=== PATIENT | female | born 1970 | race Caucasian/White ===

== ENCOUNTER 2023-12-23 06:24 | Emergency (ER) | payer BC, OTHER ==
[2023-12-23 06:45] VITALS: BP 131/77; PULSE 71; RESP 17; TEMP 98; BMI 31.4
[2023-12-23] MEDS ORDERED: KETOROLAC TROMETHAMINE 30 MG/1 ML VIAL ONE (07:39)
[2023-12-23] MEDS: KETOROLAC TROMETHAMINE 30 MG/1 ML VIAL IM ONE (07:51)
[2023-12-23 08:47] LABS: INR 0.95 (0.83-1.09)
[2023-12-23 08:50] LABS: ACTIVATED PTT 33.5 SECONDS (25.2-36.5)
[2023-12-23 09:00] LABS: BASO % 0.4 % (0-2.0); EOS % 2.2 % (0-4.5); HEMATOCRIT 43.2 % (32.4-45.2); HEMOGLOBIN 14.4 GM/dL (10.7-15.3); LYMPH % 24.4 % (8-40); MCH 30.9 pg (25.7-33.7); MCHC 33.3 g/dl (32.0-36.0); MONO % 8.4 % (3.8-10.2); NEUT % 64.6 % (42.8-82.8); PLATELET COUNT 272 10^3/uL (134-434); RBC 4.65 M/mm3 (3.60-5.2); RDW 13.9 % (11.6-15.6)
[2023-12-23 09:03] LABS: CALCIUM 9.2 mg/dL (8.5-10.1)
[2023-12-23 09:04] LABS: ALBUMIN 3.5 g/dl (3.4-5.0); BLOOD UREA NITROGEN 12.4 mg/dL (7-18)
[2023-12-23 09:07] LABS: CREATININE 0.6 mg/dL (0.55-1.3); MAGNESIUM 2.1 mg/dL (1.8-2.4)
[2023-12-23 09:09] LABS: BILIRUBIN,TOTAL 0.2 mg/dL (0.2-1)
[2023-12-23 09:11] LABS: PHOSPHOROUS 3.4 mg/dL (2.5-4.9)
[2023-12-23] MEDS ORDERED: oxyCODONE HCL 5 MG TABLET ONE (10:58)
[2023-12-23] MEDS: oxyCODONE HCL 5 MG TABLET PO ONE (11:07)
== END 2023-12-23 14:30 | disposition home or self-care (01) ==
LOC: JER 06:24
PROC: 3E0233Z Introduction of Anti-inflammatory into Muscle, Percutaneous Approach (ICD-10-PCS; principal; 2023-12-23)
DX: M79.602 Pain in left arm (principal); M25.512 Pain in left shoulder
CPT/HCPCS: 36415; 70450-TC; 70496-TC; 70498-TC; 72125-TC; 73030-TC-LT-FY; 80053; 83735; 84100; 84484; 84703; 85025; 85610; 85730; 86850; 86900; 86901; 93005; 93010; 99285-25; Q9967

== ENCOUNTER 2024-01-28 04:39 | Day surgery (SDC) | payer BC, OTHER ==
[2024-01-22 13:58] VITALS: BMI 31.4
[2024-01-28] MEDS ORDERED: LIDOCAINE HCL/PF 1% SDV 5ML VIAL ONE (07:15)
[2024-01-28] MEDS ORDERED: DEXAMETHASONE SOD PHOSPHATE 10 MG/1 ML VIAL ONE (07:15)
[2024-01-28] MEDS: DEXAMETHASONE SOD PHOSPHATE 10 MG/1 ML VIAL IVPUSH ONE ×2 (13:33)
[2024-01-28] MEDS: LIDOCAINE 1% P/F 10 MG/ML VIAL INF ONE ×2 (13:33)
[2024-01-28] MEDS: IOHEXOL 180 MG/1 ML ML IJ ONE ×2 (13:33)
[2024-01-28 14:00] VITALS: BP 93/66; PULSE 65; RESP 19; TEMP 97.8
[2024-01-28] MEDS ORDERED: ACETAMINOPHEN 500 MG TABLET (FP) PO PRN (15:18)
== END 2024-01-28 14:12 | disposition home or self-care (01) ==
LOC: JASU-SURG 04:39
PROVIDERS: ATTEND Pain Medicine Pain Medicine
PROC: 3E0R3BZ Introduction of Anesthetic Agent into Spinal Canal, Percutaneous Approach (ICD-10-PCS; 2024-01-28)
PROC: 3E0R33Z Introduction of Anti-inflammatory into Spinal Canal, Percutaneous Approach (ICD-10-PCS; principal; 2024-01-28 12:45)
DX: M54.12 Radiculopathy, cervical region (principal)
CPT/HCPCS: 76000-TC-FY; J1100